=== PATIENT | male | born 1940 | race Caucasian/White ===

== ENCOUNTER 2019-01-08 16:11 | Observation (INO) | payer OTHER ==
[~2019-01-08] VITALS: Ht 172.7 cm; Wt 90.1 kg
[2019-01-08 17:23] LABS: BASOPHILS ABSOLUTE AUTO 0.04 K/mm3 (0.00-0.23); BASOPHILS PERCENT AUTO 0 % (0-2); EOSINOPHILS ABSOLUTE AUTO 0.11 K/mm3 (0.00-0.68); EOSINOPHILS PERCENT AUTO 1 % (0-6); Hematocrit 41.8 % (37.0-53.0); Hemoglobin 14.5 g/dL (13.5-17.5); IMMATURE GRAN ABSOLUTE AUTO 0.07 K/mm3 (0.00-0.10); IMMATURE GRAN PERCENT AUTO 1 % (0-1); LYMPHOCYTES ABSOLUTE AUTO 1.24 K/mm3 (0.84-5.20); LYMPHOCYTES PERCENT AUTO 11 % (21-46); MONOCYTES ABSOLUTE AUTO 1.54 K/mm3 (0.16-1.47); MONOCYTES PERCENT AUTO 14 % (4-13); Mean Corpuscular HGB 32.8 pg (26.0-34.0); Mean Corpuscular HGB Conc 34.7 g/dL (31.5-36.5); Mean Corpuscular Volume 95 fL (80-100); Mean Platelet Volume 11.1 fL (9.1-12.4); NEUTROPHILS ABSOLUTE AUTO 7.92 K/mm3 (1.96-9.15); NEUTROPHILS PERCENT AUTO 73 % (41-73); Platelet Count 231 K/mm3 (150-400); RDW Coefficient Variation 17.6 % (11.7-14.2); RDW Standard Deviation 60.5 fL (35.1-46.3); Red Blood Cell Count 4.42 M/mm3 (4.30-5.90); White Blood Cell Count 10.92 K/mm3 (4.00-11.30)
[2019-01-08 17:32] LABS: International Normalized Ratio 1.32; Prothrombin Time Results 13.6 Sec (9.7-11.5)
[2019-01-08 17:36] LABS: Albumin, Blood 2.1 g/dL (3.4-5.0); Albumin/Globulin Ratio 0.4 (0.8-1.8); Bilirubin, Total 3.1 mg/dL (0.1-1.0); Bun/Creatinine Ratio 35.1 (12.0-20.0); Creatinine, Blood 1.51 mg/dL (0.60-1.20); Globulin, Blood 5.1 g/dL (2.2-4.0); Potassium, Blood 4.1 mmol/L (3.5-5.5); Total Protein, Blood 7.2 g/dL (6.4-8.2)
[2019-01-08] MEDS ORDERED: ALBU90OI INH (18:21)
[2019-01-08] MEDS ORDERED: METF500 PO (18:29)
[2019-01-08] MEDS ORDERED: GLIP10 PO (18:29)
[2019-01-08] MEDS ORDERED: Advair Hfa 115-12 GM INH (18:30)
[2019-01-08] MEDS ORDERED: SILDENAFIL CIT100 MG PO (18:31)
[2019-01-08] MEDS ORDERED: Cetirizine HCl10 MG PO (18:34)
--- NOTE | 2019-01-09 02:30 | NUR ---
78 yr old male admitted earlier in the shift with ascites and liver cancer. Answered admit questions with , then left. Alert and oriented x 4. Up with assist. Scheduled paracentesis in the AM. Has received analgesic x 2 for right shoulder pain - voiced arthritic s/s. IVF infusing as ordered. Uses call light appropriately. Call light in reach.
[2019-01-09 05:08] LABS: BASOPHILS ABSOLUTE AUTO 0.02 K/mm3 (0.00-0.23); BASOPHILS PERCENT AUTO 0 % (0-2); EOSINOPHILS ABSOLUTE AUTO 0.07 K/mm3 (0.00-0.68); EOSINOPHILS PERCENT AUTO 1 % (0-6); Hematocrit 38.1 % (37.0-53.0); IMMATURE GRAN ABSOLUTE AUTO 0.08 K/mm3 (0.00-0.10); IMMATURE GRAN PERCENT AUTO 1 % (0-1); LYMPHOCYTES ABSOLUTE AUTO 1.07 K/mm3 (0.84-5.20); LYMPHOCYTES PERCENT AUTO 11 % (21-46); MONOCYTES ABSOLUTE AUTO 1.56 K/mm3 (0.16-1.47); MONOCYTES PERCENT AUTO 15 % (4-13); Mean Corpuscular HGB 31.9 pg (26.0-34.0); Mean Corpuscular HGB Conc 34.1 g/dL (31.5-36.5); Mean Corpuscular Volume 94 fL (80-100); Mean Platelet Volume 10.7 fL (9.1-12.4); NEUTROPHILS PERCENT AUTO 73 % (41-73); Platelet Count 219 K/mm3 (150-400); RDW Coefficient Variation 17.6 % (11.7-14.2); RDW Standard Deviation 59.6 fL (35.1-46.3); Red Blood Cell Count 4.07 M/mm3 (4.30-5.90)
[2019-01-09 05:31] LABS: Alanine Aminotransfer (ALT/SGP 67 U/L (12-78); Albumin, Blood 1.8 g/dL (3.4-5.0); Albumin/Globulin Ratio 0.4 (0.8-1.8); Alk Phos 354 U/L (50-136); Anion Gap 9 mmol/L (6-16); Aspartate Aminotrans (AST/SGOT 144 U/L (12-37); Blood Urea Nitrogen 47 mg/dL (8-24); Bun/Creatinine Ratio 39.5 (12.0-20.0); CO2, Blood 23 mmol/L (21-32); Calcium, Blood 9.4 mg/dL (8.5-10.1); Chloride, Blood 102 mmol/L (98-108); Creatinine, Blood 1.19 mg/dL (0.60-1.20); Globulin, Blood 4.8 g/dL (2.2-4.0); Glomerular Filtration Rate >60 (60-); Glucose, Blood 140 mg/dL (70-99); Potassium, Blood 4.8 mmol/L (3.5-5.5); Sodium, Blood 134 mmol/L (136-145); Total Protein, Blood 6.6 g/dL (6.4-8.2)
--- NOTE | 2019-01-09 05:34 | NUR ---
pT HAS BEEN ASSISTED TO THE BATHROOM SEVERAL TIMSE THIS SHIFT TO VOID. hE CONTINUES TO REFUSE TO USE URINAL FOR OUTPUT AMTS. - CALL LIGHT IN REACH
[2019-01-09 14:59] LABS: Automated BF WBC Count 0.282 K/mm3 (0-999); Body Fluid WBC Count 282 /mm3 (0-999)
[2019-01-09 15:15] LABS: Albumin, Body Fluid 0.6 g/dL; Glucose, Body Fluid 154 mg/dL; Lactate Dehydrogenase, Body Fl 31 U/L; Protein, Body Fluid 1.5 g/dL
[2019-01-09 15:23] LABS: pH, Body Fluid 7.5
[2019-01-09 15:32] LABS: RBC Count, Body Fluid 428 /mm3 (0-0)
[2019-01-09 15:49] LABS: Appearance, Body Fluid Hazy (Clear); Color, Body Fluid Yellow (None-Yellow); Total Cell Count, Body Fluid 100
--- NOTE | 2019-01-09 17:06 | NUR ---
PT ALERT AND ORIENTED IN THE ROOM THIS SHIFT. PT SLOW TO RESPOND TO QUESTIONS AT TIMES AND DRIFTS OFF. PT'S AND 'S SISTER WERE IN THE ROOM FOR MUCH OF THE SHIFT. PT UP TO THE BATHROOM WITH MINIMAL ASSIST, USING FWW MULTIPLE TIMES THIS SHIFT. PT HAD A PARACENTESIS AROUND 2 PM, WITH 2.8 L REMOVED. PT SEEMS TO BE BREATHING EASIER AFTER PARACENTESIS AND RESTING IN BED. PT MEDICATED FOR PAIN IN RT SHOULDER THIS AM, DENIES FURTHER PAIN THIS AFTERNOON. PT CURRENTLY RESTING IN BED.
[2019-01-10 01:49] LABS: Source, Urine Clean Catch
[2019-01-10 01:53] LABS: Bilirubin, Urine Neg (Neg); Blood, Urine 2+ (Neg); Glucose Qualitative, Urine Neg (Neg); Ketones, Urine 2+ (Neg); Leukocyte Esterase, Urine 2+ (Neg); Nitrite, Urine Neg (Neg); Protein, Urine 1+ (Neg); Urobilinogen, Urine 1+ (Normal)
[2019-01-10 02:05] LABS: Appearance, Urine Clear (Clear); Color, Urine Amber (P-Yellow)
[2019-01-10 02:06] LABS: Bacteria Few /hpf; Squamous Epithelial Cells Few /hpf (Few)
[2019-01-10 02:09] LABS: Creatinine, Urine Random 76.6 mg/dL (27.00-270.00)
--- NOTE | 2019-01-10 04:12 | NUR ---
SHIFT SUMMARY: 78 Y/O MALE HAD RESTLESS SHIFT AT TIMES WITH PATIENT UP VOID AND REPOSITIONED NUMEROUS TIMES; ALERT AND ORIENTED X 2, REQUIRES FREQUENT FOLLOW UP AND REDIRECTIONS WITH ALL TASKS; URINE OBTAINED AND SENT TO LAB; BED ALARM APPLIED, BED LOW POSITION WITH CALL LIGHT AT SIDE.
[2019-01-10 04:59] LABS: BASOPHILS ABSOLUTE AUTO 0.04 K/mm3 (0.00-0.23); BASOPHILS PERCENT AUTO 0 % (0-2); EOSINOPHILS ABSOLUTE AUTO 0.08 K/mm3 (0.00-0.68); EOSINOPHILS PERCENT AUTO 1 % (0-6); Hematocrit 41.1 % (37.0-53.0); Hemoglobin 13.7 g/dL (13.5-17.5); IMMATURE GRAN ABSOLUTE AUTO 0.07 K/mm3 (0.00-0.10); IMMATURE GRAN PERCENT AUTO 1 % (0-1); LYMPHOCYTES ABSOLUTE AUTO 1.05 K/mm3 (0.84-5.20); LYMPHOCYTES PERCENT AUTO 10 % (21-46); MONOCYTES ABSOLUTE AUTO 1.43 K/mm3 (0.16-1.47); MONOCYTES PERCENT AUTO 14 % (4-13); Mean Corpuscular HGB Conc 33.3 g/dL (31.5-36.5); Mean Corpuscular Volume 96 fL (80-100); Mean Platelet Volume 10.4 fL (9.1-12.4); NEUTROPHILS ABSOLUTE AUTO 7.52 K/mm3 (1.96-9.15); NEUTROPHILS PERCENT AUTO 74 % (41-73); Platelet Count 228 K/mm3 (150-400); RDW Coefficient Variation 18.3 % (11.7-14.2); RDW Standard Deviation 63.7 fL (35.1-46.3); Red Blood Cell Count 4.28 M/mm3 (4.30-5.90); White Blood Cell Count 10.19 K/mm3 (4.00-11.30)
[2019-01-10 05:21] LABS: Alanine Aminotransfer (ALT/SGP 75 U/L (12-78); Albumin, Blood 1.9 g/dL (3.4-5.0); Albumin/Globulin Ratio 0.4 (0.8-1.8); Alk Phos 499 U/L (50-136); Anion Gap 8 mmol/L (6-16); Aspartate Aminotrans (AST/SGOT 164 U/L (12-37); Bilirubin, Total 3.4 mg/dL (0.1-1.0); Blood Urea Nitrogen 36 mg/dL (8-24); Bun/Creatinine Ratio 41.7 (12.0-20.0); CO2, Blood 26 mmol/L (21-32); Calcium, Blood 9.6 mg/dL (8.5-10.1); Chloride, Blood 103 mmol/L (98-108); Creatinine, Blood 0.86 mg/dL (0.60-1.20); Globulin, Blood 4.8 g/dL (2.2-4.0); Glomerular Filtration Rate >60 (60-); Glucose, Blood 150 mg/dL (70-99); Sodium, Blood 137 mmol/L (136-145); Total Protein, Blood 6.7 g/dL (6.4-8.2)
--- NOTE | 2019-01-10 14:44 | NUR ---
SPOKE TO DR SAMUEL- HAD MENTIONED POSSIBLE GI CONSULT, NO CONSULT CALLED BY RN. PER HE SPOKE TO GI DR ALREADY.
--- NOTE | 2019-01-10 18:44 | NUR ---
SHIFT SUMMARY- PT A&O X2 AT THE START OF THE SHIFT. TRAMADOL GIVEN FOR PAIN THIS MORNING, THEN DR CAME TO SEE THE PT, TRAMADOL DC'D AND 5MG OXY ORDERED. LATER IN THE SHIFT (SEE EMAR FOR TIME) PT WAS GIVEN OXY FOR PAIN, PT WAS GRIMACING AND GROANING AND QUICK TO REPLY YES TO OFFERS OF PAIN MEDICATION. PT STATED PAIN IN HIS RIGHT ARM AND SHOULDER WELL HIS BACK. ON FOLLOW UP TO PAIN MEDICATION PT WAS SLEEPING SITTING UP IN THE CHAIR. WHEN PT WAS SHAKEN HE WOULD WAKE FOR ONE WORD AND RETURN TO SLUMBER. ONCE PT WAS RETURNED TO THE BED HE CONTINUED TO SLEEP FOR HOURS WAKING FOR A SENTENCE OR MORE AT AROUND 1800. DR AWARE OF PT SLEEPYNESS. PAIN MED DOSE AND FREQUENCY CHANGED. WHIL PT WAS SLEEPING HIS O2 SATS DECREASED TO 84% PLACED ON 2L O2 SATS 92%.
--- NOTE | 2019-01-10 21:22 | NUR ---
2049 DR ALMENDAREZ AT SIDE; PTS --TYE AT SIDE; ABD FIRM AND DISTENDED; ABLE FOLLOW VERY SIMPLE VERBAL COMMANDS; BED ALARM APPLIED WITH BED LOW POSITION AND CALL LIGHT AT SIDE; SPENDING NIGHT AT SIDE.
--- NOTE | 2019-01-11 03:32 | NUR ---
SHIFT SUMMARY: 78 Y/O MALE HAD RESTLESS NIGHT AT TIMES; DR ALMENDAREZ CONSULTED LAST PM WITH MD TO READ OVER CHART AND RETURN MONDAY; AT SIDE AND SUPPORTIVE; ALERT AND ORIENTED X 2; PT SLEPT LOUNGE CHAIR LAST 4 HOURS OF SHIFT (STOOD AND BEARED WEIGHT WHILE PIVOTING TO CHAIR VIA WALKER AND TWO ASSIST); PT VERY WEAK; ABD FIRM AND DISTENDED; VOIDING YELLOW FLUID; ALERT AND ORIENTED X 2, ABLE TO FOLLOW SIMPLE VERBAL COMMANDS; C/O RIGHT SHOULDER DISCOMFORT RATED 7/10 WITH ROXICODONE 2.5MG PO GIVEN WITH RELIF FELT (ICE PACK ALSO APPLIED FOR COMFORT); BED ALARM APPLIED, BED LOW POSITION WITH CALL LIGHT AT SIDE.
[2019-01-11 06:27] LABS: BASOPHILS ABSOLUTE AUTO 0.07 K/mm3 (0.00-0.23); BASOPHILS PERCENT AUTO 1 % (0-2); EOSINOPHILS PERCENT AUTO 1 % (0-6); Hematocrit 43.6 % (37.0-53.0); Hemoglobin 14.1 g/dL (13.5-17.5); IMMATURE GRAN ABSOLUTE AUTO 0.21 K/mm3 (0.00-0.10); IMMATURE GRAN PERCENT AUTO 2 % (0-1); LYMPHOCYTES ABSOLUTE AUTO 1.15 K/mm3 (0.84-5.20); LYMPHOCYTES PERCENT AUTO 9 % (21-46); MONOCYTES ABSOLUTE AUTO 1.24 K/mm3 (0.16-1.47); MONOCYTES PERCENT AUTO 9 % (4-13); Mean Corpuscular HGB 32.7 pg (26.0-34.0); Mean Corpuscular HGB Conc 32.3 g/dL (31.5-36.5); NEUTROPHILS ABSOLUTE AUTO 10.81 K/mm3 (1.96-9.15); NEUTROPHILS PERCENT AUTO 80 % (41-73); RDW Coefficient Variation 18.7 % (11.7-14.2); RDW Standard Deviation 70.1 fL (35.1-46.3); Red Blood Cell Count 4.31 M/mm3 (4.30-5.90); White Blood Cell Count 13.58 K/mm3 (4.00-11.30)
[2019-01-11 06:29] LABS: Mean Corpuscular Volume 101 fL (80-100); Mean Platelet Volume 10.3 fL (9.1-12.4); Platelet Count 234 K/mm3 (150-400)
[2019-01-11 06:39] LABS: Alanine Aminotransfer (ALT/SGP 74 U/L (12-78); Albumin, Blood 1.7 g/dL (3.4-5.0); Albumin/Globulin Ratio 0.4 (0.8-1.8); Alk Phos 484 U/L (50-136); Anion Gap 7 mmol/L (6-16); Aspartate Aminotrans (AST/SGOT 144 U/L (12-37); Blood Urea Nitrogen 28 mg/dL (8-24); CO2, Blood 27 mmol/L (21-32); Calcium, Blood 9.4 mg/dL (8.5-10.1); Chloride, Blood 102 mmol/L (98-108); Creatinine, Blood 0.85 mg/dL (0.60-1.20); Globulin, Blood 4.5 g/dL (2.2-4.0); Glomerular Filtration Rate >60 (60-); Glucose, Blood 137 mg/dL (70-99); Potassium, Blood 4.4 mmol/L (3.5-5.5); Sodium, Blood 136 mmol/L (136-145); Total Protein, Blood 6.2 g/dL (6.4-8.2)
--- NOTE | 2019-01-11 12:51 | NUR ---
Initial Visit: Pt is resting comfortably and snoring softly at time of visit. , Kate, is present. She is tired and anxious about his care. She reports that he has had a steep decline and watching it has been difficult. She has gone through his times of confusion and weakness. She has spoken to the doctors and reports that she has been told that his best course of action is hospice care. She reports that he is still wanting to pursue treatment in [place], even though he is aware that it is not being successful. She states that her cousin and her sister both lost their husbands to liver disease and they have told her that the disease is incredibly challenging to caregivers at end of life stage. She is anticipating this to be very difficult. She states that he has already lost control of bowel and bladder at home and she worked hard to help him transfer and clean him up. She is aware of hospice services. Reviewed this service and what it would look like at home. RN visits, bath aid, equipment. She voices her understanding. She is waiting for a call from his doctor in [place] for further direction. Will remain available for pt and family. He is apparently doing better today, as pain meds sedated him yesterday. He has ambulated to the bathroom and back to bed. He is eating today. Updated nurse, Caitie. Pt had a paracentesis two days ago. Pt may need a PleurX drain placement eventually to go on hospice. Advance directive is copied and faxed to medical records. No other concerns.
--- NOTE | 2019-01-11 18:29 | NUR ---
SHIFT SUMMARY- PT DAUGHTER ARRIVED TODAY SHE AND PT SPOUSE DISCUSSED THE POSSIBILITY OF HOSPICE, BOTH STATED THAT IS WHAT THE PT SHOULD DO BUT THEY AGREED THAT THE PT WOULD NOT "GO FOR THAT, AT ALL." PT MORE ALERT TODAY THAN PREVIOUS. ABD DISTENTION STILL PRESENT. PT STILL HAS BACK, RIGHT SHOULDER AND ARM PAIN. PT CURRENTLY UP IN THE CHAIR. PT HAS BECOME A LARGER FALL RISK WITH THE INCREASED ALERTNESS, BED AND CHAIR ALARMS SHOULD BE USED AT ALL TIMES. PT VERBILIZES HOWEVER VERY SLOW TO RESPOND. PT SEEMS TO HAVE DIFFICULTY UNDERSTANDING WHAT PEOPLE ARE SAYING. PT STATED THIS EVENING WHEN STAFF WERE HELPING WITH CUTTING UP HIS DINNER "I DON'T MEAN TO OFFEND; I'M NOT GOING TO PLAY YOUR GAMES." PT HAD BEEN OFFERED IV PAIN MEDICATION TO WHICH HE REPLIED "I WOULD NOT LIKE THAT." PT IS DECLINING D/T THE CHRONIC ISSUES, PLAN IS TO CONTINUE WITH ABX AND SEE IF PT CAN IMPROVE COGNITIVELY. PT ADVANCED DIRECTIVE IS IN THE FRONT OF THE CHART. PT IS CURRENTLY A DNR
--- NOTE | 2019-01-12 05:29 | NUR ---
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 PATIENT REPEATEDLY SETTING BED AND CHAIR ALARM OFF. PATIENT SPOKE TO HIS AND WAS ABLE TO SLEEP A COUPLE OF HOURS. PATIENT UP WITH MIN ASSIST TO BSC/BATHROOM. PATIENT REPEATEDLY REMOVING TELEMETRY BOX AND THEN EVENTUALLY REFUSED TO ALLOW STAFF TO REPLACE BACK ON HIM. SPOKE TO PCU SHEEP AND WHEAT FARMER AND MADE THEM AWARE PATIENT WAS REFUSING. PCU SHEEP AND WHEAT FARMER [place] STATED THAT PATIENT DID QUALIFY FOR DC OF TELEMETRY BUT WILL DEFER THAT TO ATTENDING PHYSICIAN WHEN THEY ARE TAKING CALL IN AM. BED ALARM AND CHAIR ALARM IN [place]. PATIENT ORIENTED TO SELF AND FAMILY. WILL CONTINUE TO MONITOR.
[2019-01-12 10:46] LABS: BASOPHILS ABSOLUTE AUTO 0.05 K/mm3 (0.00-0.23); BASOPHILS PERCENT AUTO 0 % (0-2); EOSINOPHILS ABSOLUTE AUTO 0.09 K/mm3 (0.00-0.68); EOSINOPHILS PERCENT AUTO 1 % (0-6); Hematocrit 40.1 % (37.0-53.0); Hemoglobin 13.8 g/dL (13.5-17.5); IMMATURE GRAN ABSOLUTE AUTO 0.08 K/mm3 (0.00-0.10); IMMATURE GRAN PERCENT AUTO 1 % (0-1); LYMPHOCYTES ABSOLUTE AUTO 0.96 K/mm3 (0.84-5.20); LYMPHOCYTES PERCENT AUTO 7 % (21-46); MONOCYTES ABSOLUTE AUTO 0.95 K/mm3 (0.16-1.47); MONOCYTES PERCENT AUTO 7 % (4-13); Mean Corpuscular HGB 32.4 pg (26.0-34.0); Mean Corpuscular HGB Conc 34.4 g/dL (31.5-36.5); Mean Platelet Volume 10.7 fL (9.1-12.4); NEUTROPHILS ABSOLUTE AUTO 11.59 K/mm3 (1.96-9.15); NEUTROPHILS PERCENT AUTO 84 % (41-73); Platelet Count 261 K/mm3 (150-400); RDW Coefficient Variation 17.8 % (11.7-14.2); Red Blood Cell Count 4.26 M/mm3 (4.30-5.90); White Blood Cell Count 13.72 K/mm3 (4.00-11.30)
[2019-01-12 10:49] LABS: Mean Corpuscular Volume 94 fL (80-100)
[2019-01-12 11:02] LABS: Alanine Aminotransfer (ALT/SGP 76 U/L (12-78); Albumin, Blood 1.8 g/dL (3.4-5.0); Albumin/Globulin Ratio 0.4 (0.8-1.8); Alk Phos 526 U/L (50-136); Anion Gap 7 mmol/L (6-16); Aspartate Aminotrans (AST/SGOT 168 U/L (12-37); Bilirubin, Total 4.6 mg/dL (0.1-1.0); Blood Urea Nitrogen 31 mg/dL (8-24); Bun/Creatinine Ratio 41.4 (12.0-20.0); CO2, Blood 25 mmol/L (21-32); Calcium, Blood 9.3 mg/dL (8.5-10.1); Chloride, Blood 102 mmol/L (98-108); Creatinine, Blood 0.75 mg/dL (0.60-1.20); Globulin, Blood 4.7 g/dL (2.2-4.0); Glomerular Filtration Rate >60 (60-); Glucose, Blood 161 mg/dL (70-99); International Normalized Ratio 1.74; Potassium, Blood 4.4 mmol/L (3.5-5.5); Prothrombin Time Results 17.5 Sec (9.7-11.5); Sodium, Blood 134 mmol/L (136-145); Total Protein, Blood 6.5 g/dL (6.4-8.2)
--- NOTE | 2019-01-12 12:36 | NUR ---
Case Conference: Received call from bedside RN Cande reporting that family would like to discuss goals of care with Palliative Care. Arrived to Pt's room and family requests to conference outside of room. Escorted Pt's Kate and Pt's daughter Georgie to Palliative Care office. Listened as Kate reports Pt wanting to do home and Kate wanting Pt to come home. Kate reports seeing a signifant decline in Pt and wants to focus on quality of life. Dr Viveros arrives and joins conversation. Dr Viveros discusses Pt's prognosis and is agreeable with Pt going home on hospice. Also discussed PleurX drain. Dr Viveros reports Pt would benefit from PleurX drain for comfort. Family aware of hospice philosophy from previous Palliative Care nurse education. Discuss further needs for equipment and hiring caregiver to assist family with Pt care needs. Gave family hospice brochures to decide on agency. Family would like Pt placed on comfort care. Educated family on comfort care philosophy with V/U made. No other concerns reported at this time. Called and spoke with Dr Perez and discussed family's wishes. Dr Perez will place comfort care orders. Requested surgical consult for PleurX drain for comfort. Dr Perez not agreeable for PleurX drain for comfort. Pt will need hospital bed, over bed table, bedside commode, oxygen, pressure pump and pad delivered to home before Pt discharge. Will place hospice referral. Palliative Care will remain available.
--- NOTE | 2019-01-12 17:12 | NUR ---
PATIENT WAS DISORIENT THIS MORNING. THROUGHOUT THE DAY, HE BECAME MORE LUCID. FAMILY WAS AT THE BEDSIDE MOST OF THE DAY. PATIENT SLEPT IN BED ON AND OFF THROUGHOUT THE DAY. HE IS CURRENTLY SLEEPING IN BED. CMOPLAINTS OF PAIN IN HIS RIGHT SHOULDER, TREATED BY REPOSITIONING. PALLIATIVE CARE SPOKE WITH THE FAMILY. COMFORT CARE WAS DECIDED. THE PATIENT IS NPO IN PREPARATION FOR HIS PROCEDURE TOMORROW. BED ALARM IS ON. WILL CONTINUE TO MONITOR.
--- NOTE | 2019-01-13 04:56 | NUR ---
SHIFT SUMMARY PT WAS UP FOR A GOOD HALF OF THE SHIFT, PT WAS ANXIOUS AND ATTEMPTED TO CLIMB OOB SEVERAL TIMES WITHOUT ASSISTANCE. PT IS FORGETFUL AND DIFFICULT TO DIRECT. PT REPORTS BACK AND SHOULDER PAIN. PRIMARILY SHOULDER PAIN. MEDICATED WITH ROXICODONE WITHOUT MUCH RELIEF. PT CONTINUED TO REPORT PAIN AND WAS FINDING IT VERY DIFFICULT TO LAY IN BED AND REST. I CONTINUED TO OFFER PT ADDITIONAL PAIN RELIEF, AND HE REFUSED, BUT AFTER SOMETIME HE DECIDED THAT HE WANTED SOMETHING ADDITIONAL FOR PAIN. MEDICATED WITH ROXICODONE WITH EFFECT. PT HAS RESTED COMFORTABLY SINCE THAT TIME. PT HAS BEEN AMBULATING WITH 1 PA TO THE [facility] [place]. PLAN IS FOR PLEURX DRAIN PLACEMENT TODAY. PT HAS BEEN NPO. NO VISITORS THIS SHIFT. COMFORT CARE CONTINUED PER ORDERS. COMFORT ASSESSED T/O SHIFT. BED IN LOWEST POSITION, CALL LIGHT WITHIN REACH. WILL CONTINUE TO MONITOR AND REPORT TO ONCOMING RN.
--- NOTE | 2019-01-13 16:46 | NUR ---
SHIFT SUMMARY PATIENT NAPPING MOST OF SHIFT. PATIENT HAD PLEUR-X DRAIN PLACED TODAY. PATIENT UP TO BSC ONE ASSIST. FAMILY AT BEDSIDE. PATIETN MEDICATED X 1 FOR PAIN THIS AFTERNOON. PALLIATIVE CARE WORKING WITH FAMILY TO ARRANGE HOSPICE DISCHARGE TO HOME.
--- NOTE | 2019-01-13 17:17 | NUR ---
Pt visit this evening. Pt resting in bed and just received Roxanol for pain. Pt's Kate and daughter Georgie at bedside. Offered to educate on PleurX drain with training kit and video. Family requests to just watch video for now and would like further training with kit tomorrow. Loaded training video for family and answered questions. Family expresses appreciation and are opened for continued training. Answered family questions outside Pt's room related to S/S of transition phase and acitvely dying stage the Pt may experience. Obtain copy of completed POLST and faxed to medical records. Spoke with bedside RN Geoff and discussed case. Palliative Care will remain available for symptom management and continued education for PleurX drain. Family is also requesting a wheel chair to be supplied by [facility].
--- NOTE | 2019-01-14 04:32 | NUR ---
SHIFT SUMMARY PT HAS HAD A MUCH MORE RESTFUL NIGHT THIS SHIFT, AND HAS BEEN MORE A/O AND DIRECTABLE. PT HAS NOT BEEN JUMPING OOB BED MUCH, HOWEVER HE STILL DOES NOT USE CALL LIGHT WHEN HE NEEDS ASSISTANCE TO THE BATHROOM. PT STEADY ON FEET AND AMBULATES TO THE BATHROOM WITH 1 PA. PT HAS NOT COMPLAINED OF ANY PAIN THIS SHIFT, AND APPEARS MUCH MORE COMFORTABLE SINCE PLEURX DRAIN PLACEMENT YESTERDAY. PLEURX DRAIN SITE TO RLQ IS WNL. PT DECLINES TO BE REPOSITIONED, HE ALSO REFUSES ORAL CARE. COMFORT ASSESSED T/O SHIFT. NO ACUTE CHANGES. [facility]. BED IN LOWEST POSITION, CALL LIGHT WITHIN REACH. WILL CONTINUE TO MONITOR AND REPORT TO ONCOMING RN.
--- NOTE | 2019-01-14 08:10 | NUR ---
01/14/19 0810 Joslyn Romero VERIFICATIONS: EDIT CHART.
[2019-01-14] MEDS ORDERED: GAVILAX17 GM PO (11:47)
[2019-01-14] MEDS ORDERED: LORA.5 PO (11:47)
[2019-01-14] MEDS ORDERED: MORP20L PO (11:48)
[2019-01-14] MEDS ORDERED: ONDA4ODT MM (11:49)
[2019-01-14] MEDS ORDERED: SENN187 PO (11:50)
[2019-01-14] MEDS ORDERED: ROXICODONE5 MG PO (11:50)
--- NOTE | 2019-01-14 15:55 | NUR ---
PleurX Drain Teaching: Pt is resting comfortably, respirations even and unlabored. Does not appear to be in pain or distress. Coaching for PleurX Drain system. Pt's will be the pt's primary caregiver. She is able and willing to receive teaching to drain the pt's abdominal fluid from the PleurX site. Teaching performed using the training kit. Instructed on bandage removal, glove changes, sterile technique. Kate has watched the video and states that she will do this again if needed. Demonstration of draining the system and changing the dressing. She return demonstrates, asking questions and engaged with task. She successfully drains the training system and verbalizes understanding of completing this. Disposal of bottle and supplies reviewed. Kate is going home with PleurX Drain Kit, extra sterile gloves, adhesive removal pads, 4X4 gauze, skin barrier pads, and 2 extra tegaderm films. Instructed on these supplies and to ask [facility] hospice to provide her with supplies as she needs them. She demonstrates good understanding of care. Card given for palliative care if needs additional training with the system. No other concerns from Kate at this time. Updated nursing on the instructions, and to charge the kit to the pt with charge sheet.
--- NOTE | 2019-01-14 16:15 | NUR ---
PT DISCHARGED. PT DISCHARGED AT 1616. PT DENIED PAIN PRIOR TO DC. PT & EDUCATED ON DC INSTRUCTIONS & NEW MEDS. PALLITIVE HERMES NAVARRO, REVIEWED PLEREX VAC WITH PT & . PT WHEELED OUT BY AIDE & TO BE DRIVEN HOME BY . NO CHANGES IN ASSESSMENT PRIOR TO DC.
== END 2019-01-14 16:21 | disposition hospice, home (50) ==
LOC: ER 16:11 → MEDS 16:12
PROVIDERS: Family Medicine; Internal Medicine Gastroenterology; Physician Assistant; ADMIT Hospitalist
PROC: 0W9F30Z Drainage of Abdominal Wall with Drainage Device, Percutaneous Approach (ICD-10-PCS; principal; 2019-01-08)
DX: K70.31 Alcoholic cirrhosis of liver with ascites (principal); C22.7 Other specified carcinomas of liver; K21.9 Gastro-esophageal reflux disease without esophagitis; J44.9 Chronic obstructive pulmonary disease, unspecified; E66.9 Obesity, unspecified; E11.9 Type 2 diabetes mellitus without complications; Z87.891 Personal history of nicotine dependence; Z88.1 Allergy status to other antibiotic agents; Z91.011 Allergy to milk products; Z79.84 Long term (current) use of oral hypoglycemic drugs; Z79.899 Other long term (current) drug therapy; Z90.49 Acquired absence of other specified parts of digestive tract
CPT/HCPCS: 36415; 49083; 51798; 71046; 80053; 81001; 82042; 82140; 82570; 82945; 83615; 83880; 83935; 83986; 84157; 84300; 84540; 85025; 85610; 85730; 87070; 87205; 88108; 88305; 89051; 93005; 93010; 93975; 94640; 94760; 96361; 96365; 96366; 96374-59; 96375-59; 96376; 99285-25; C1729; G0378; J0696; J2250; J2704; J3010; J3480; J7050; J7120; P9046